=== PATIENT | male | born 1995 | race Caucasian/White ===

== ENCOUNTER 2019-08-27 14:24 | Emergency (ER) | payer OTHER ==
[~2019-08-27] VITALS: Ht 170.2 cm; Wt 49.9 kg
[2019-08-27 14:30] VITALS: BP 117/70
[2019-08-27] MEDS ORDERED: NACL 0.9% 1,000 ML IV ONE (14:55)
[2019-08-27] MEDS ORDERED: KETOROLAC 30 MG/ML VIAL IVP ONE (14:55)
[2019-08-27] MEDS ORDERED: ONDANSETRON 4 MG/2 ML VIAL IVP ONE (14:55)
--- NOTE | 2019-08-27 15:22 | NUR ---
PATIENT PRESENTS TO ED WITH H/A & DIZZINESS X 3 HOURS. PT DESCRIBES PAIN TO BE SHARP, COMING AND GOING. -FEVER -LOC -CHILLS +NAUSEA -VOMITING - -NECK PAIN OR RIGIDITY -WEAKNESS -NUMBNESS. NO MEDICATIONS TAKEN. SKIN IS PINK/WARM/DRY; AAOX4 WITH EVEN AND STEADY GAIT; LUNGS CLEAR BL; HR EVEN AND REGULAR; PT DENIES ANY CP OR SOB AT THIS TIME; PATIENT STATES PAIN OF 4/10 AT THIS TIME; VSS; PATIENT POSITIONED FOR COMFORT; HOB ELEVATED; BEDRAILS UP X2; BED DOWN. ER MD SAW PATIENT. NO PMH. NO ALLERGIES.
[2019-08-27 16:09] VITALS: BP 117/70
--- NOTE | 2019-08-27 16:10 | NUR ---
Patient discharged with v/s stable. Written and verbal after care instructions given and explained. Patient alert, oriented and verbalized understanding of instructions. Ambulatory with steady gait. All questions addressed prior to discharge. ID band removed. Patient advised to follow up with PMD. Rx of ZOFRAN & MOTRIN given. Patient educated on indication of medication including possible reaction and side effects. Opportunity to ask questions provided and answered.
== END 2019-08-27 16:10 | disposition home or self-care (01) ==
LOC: MED 14:24
DX: E86.0 Dehydration (principal); R11.0 Nausea; R51 Headache
CPT/HCPCS: 81002; 96361; 96374; 96375; 99283; J1885; J2405; J7030